=== PATIENT | female | born 1970 | race Caucasian/White ===

== ENCOUNTER 2020-07-13 17:00 | Emergency (ER) | payer OTHER ==
[~2020-07-13] VITALS: Ht 160 cm; Wt 61.0 kg
[2020-07-13] MEDS ORDERED: CELEXA20 MG PO (17:36)
[2020-07-13] MEDS ORDERED: BUSPIRONE HCL10 MG PO (17:36)
[2020-07-13] MEDS ORDERED: TRAZODONE HCL50 MG PO (17:37)
[2020-07-13] MEDS ORDERED: OMEPRAZOLE20 MG PO (17:37)
== END 2020-07-13 19:32 | disposition home or self-care (01) ==
LOC: ED 17:00
DX: S46.911A Strain of unspecified muscle, fascia and tendon at shoulder and upper arm level, right arm, initial encounter (principal); X50.9XXA Other and unspecified overexertion or strenuous movements or postures, initial encounter; F17.200 Nicotine dependence, unspecified, uncomplicated; Z88.2 Allergy status to sulfonamides; Z79.899 Other long term (current) drug therapy
CPT/HCPCS: 73030; 99283-25

== ENCOUNTER 2021-03-23 18:52 | Emergency (ER) | payer OTHER ==
[~2021-03-23] VITALS: Ht 160 cm; Wt 67.6 kg
[~2021-03-23 18:52] MED LIST: BUSPIRONE HCL10 MG PO; CELEXA20 MG PO; OMEPRAZOLE20 MG PO; TRAZODONE HCL50 MG PO
== END 2021-03-23 23:35 | disposition home or self-care (01) ==
LOC: ED 18:52
DX: S60.211A Contusion of right wrist, initial encounter (principal); S50.01XA Contusion of right elbow, initial encounter; F17.200 Nicotine dependence, unspecified, uncomplicated; W01.0XXA Fall on same level from slipping, tripping and stumbling without subsequent striking against object, initial encounter; Y99.0 Civilian activity done for income or pay; Z79.899 Other long term (current) drug therapy; Z88.2 Allergy status to sulfonamides
CPT/HCPCS: 73080; 73110; 99283-25

== ENCOUNTER 2023-02-13 20:19 | Emergency (ER) | payer OTHER ==
[~2023-02-13] VITALS: Ht 160 cm; Wt 82.1 kg
[2023-02-13] MEDS ORDERED: VENTOLIN HFA18 GM INH (20:31)
[2023-02-13 21:17] VITALS: BP 128/80
== END 2023-02-13 21:17 | disposition home or self-care (01) ==
LOC: ED 20:19
DX: M12.511 Traumatic arthropathy, right shoulder (principal); F17.200 Nicotine dependence, unspecified, uncomplicated; Z88.2 Allergy status to sulfonamides; Z79.899 Other long term (current) drug therapy
CPT/HCPCS: 73030; 99283-25; A9270

== ENCOUNTER 2023-03-15 16:26 | Emergency (ER) | payer OTHER ==
[~2023-03-15] VITALS: Ht 160 cm; Wt 81.6 kg
[~2023-03-15 16:26] MED LIST changes: +VENTOLIN HFA18 GM INH
--- OUTSIDE RECORDS SUMMARY | 2023-03-15 16:28 | XMS ---
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 EIsidro VISIT COUNT (12 MO.) 2 [facility] TOTAL 2 NOTE: Visits indicate total known visits. ED/UCC VISIT TRACKING (12 MO.) 03/15/2023 16:26 [facility] TYPE: Emergency COMPLAINT: - CHEST PAIN 02/13/2023 20:20 [facility] [place] TYPE: Emergency COMPLAINT: - SHOULDER PAIN/ INJ DIAGNOSES: - Allergy status to sulfonamides - Nicotine dependence, unspecified, uncomplicated - Other half-way (current) drug therapy - Pain in right shoulder - Traumatic arthropathy, right shoulder INPATIENT VISIT TRACKING (12 MO.) No inpatient visits to display in this time frame [email or web address]
[2023-03-15] MEDS ORDERED: BUPROPION XL150 MG PO (16:40)
[2023-03-15 16:46] LABS: BASOPHILS 0.5 % (0-2); EOSINOPHILS 1.1 % (0-6); HEMATOCRIT 43.5 % (35.0-50.0); HEMOGLOBIN 14.9 g/dL (12.0-18.0); LYMPHOCYTES 19.9 % (24-44); MCH 29.1 (27-36); MCHC 34.3 g/dl (30-36); NEUTROPHILS 72.5 % (39-80); PLATELET COUNT 232 K/uL (140-440); RBC 5.11 M/ul (4.3-5.7); RDW 14.2 (10.5-15.0)
[2023-03-15 17:03] LABS: ALBUMIN 3.8 g/dL (3.4-5.0); ALBUMIN/GLOBULIN RATIO 0.97 (1.1-2.4); ANION GAP 11.5 (7-21); BILIRUBIN, TOTAL 0.3 ng/dL (0.2-1.0); BUN/CREATININE RATIO 11.45 (6.0-28.6); CALCIUM 9.3 mg/dL (8.5-10.1); CREATININE, SERUM 1.31 mg/dL (0.55-1.02); MAGNESIUM 1.8 mg/dL (1.8-2.4); POTASSIUM 3.5 mmol/L (3.5-5.1); PROTEIN, TOTAL 7.7 g/dL (6.4-8.2)
[2023-03-15 19:02] VITALS: BP 113/77
--- NOTE | 2023-03-15 20:38 | EKG ---
[facility] [address] [facility] [place] [address] Signed Normal sinus rhythm Normal ECG No previous ECGs available Confirmed by Dee Clements MD () on 03/15/2023 8:38:01 PM Electronically Signed By: DEE CLEMENTS MD 03/15/232037 PATIENT NAME: ROBE NUNEZ Electrocardiogram DATE OF : 72 PHYSICIAN: DEE CLEMENTS MD REPORT #: [id number] REPORT IS CONFIDENTIAL AND NOT TO BE RELEASED WITHOUT AUTHORIZATION
== END 2023-03-15 19:00 | disposition home or self-care (01) ==
LOC: ED 16:26
PROVIDERS: Emergency Medicine
DX: R07.89 Other chest pain (principal); F17.200 Nicotine dependence, unspecified, uncomplicated; Z88.2 Allergy status to sulfonamides; Z79.899 Other long term (current) drug therapy
CPT/HCPCS: 36415; 71045; 80053; 83735; 84484; 85025; 93005; 93010; 99285-25; A9270